=== PATIENT | female | born 1995 | race Caucasian/White ===

== ENCOUNTER 2019-07-10 11:50 | Emergency (ER) | payer SELFPAY ==
[~2019-07-10] VITALS: Ht 144.7 cm; Wt 52.2 kg
[2019-07-10] MEDS ORDERED: NAPROSYN500 MG PO (12:44)
[2019-07-10] MEDS ORDERED: AMOXICILLIN500 M2 PO (12:44)
== END 2019-07-10 12:51 | disposition home or self-care (01) ==
LOC: ED 11:50
DX: K08.89 Other specified disorders of teeth and supporting structures (principal); H92.01 Otalgia, right ear